=== PATIENT | female | born 1995 | race Caucasian/White ===

== ENCOUNTER 2016-07-29 17:18 | Emergency (ER) | payer MEDICAID ==
[~2016-07-29] VITALS: Ht 162.6 cm; Wt 68.0 kg
[~2016-07-29 17:18] MED LIST: ADDERALL30 MG PO; AMOXIL500 MG PO; BACTRIM DS 8001 TAB; BACTRIM DS 8001 TAB PO; BENADRYL 25MG C25 MG PO; CIPRO 500MG TA500 MG PO; CLARITIN 10MG T10 MG PO; CLARITIN10 MG PO; MEDROL 4MG. DOSE4 MG PO; NOMEDS *; PRILOSEC20 M1 PO; PYRIDIUM100 MG PO; TYLENOL W/CODEI1 TA2 PO
[2016-07-29 18:12] LABS: UTC STREP SCREEN NOT DETECTED (NOTDETECTED); UTC URINE PREGNANCY NEGATIVE (NEG)
[2016-07-29] MEDS ORDERED: FLONASE 50 MCG16 GM (18:20)
[2016-07-29] MEDS ORDERED: BROMFED DM COU118 ML PO (18:20)
--- NOTE | 2016-07-29 18:21 | [facility]gent [facility] Report ---
History of Present Issue Date/Time Seen by Provider 07/29/16 3479 Visit Reason Pt arrived:Walked Presenting Problem:PT C/O COUGH AND SORE THROAT ALONG WITH BILATERAL EAR PAIN SINCE FRIDAY. PT ALSO WORRIES THAT SHE MAY BE Location if Accident: Onset of symptoms date/time:/ or onset unknown for:MEDICAL HX UNKNOWN Have you (or family members/close friends) recently traveled outside the [place]? N If Yes, where/when: Have you had exposure to infectious disease within the past month? TB? Other? Specify: here w/ mother c/o nasal congestion, head pressure, ear pressure, cough since Friday, 3 days ago. Intermittent aches, chills and feeling feverish at night. No known fever. Hasn't taken or tried anything for symptoms "because I never know if I could be ". Sexually active without protection and no periods x years. Denies any symptoms to cause concern for "just never know". Rhinorrhea started today. No known sick contacts. Unsure about flu vaccine. Source patient Exam Limitations no limitations ALLERGIES Coded Allergies: No Known Allergies (07/29/16) Home Medications Active Scripts OMEPRAZOLE MAGNESIUM (Prilosec 20MG) 20 MG PO DAILY 14 Days Prov: 08/03/12 Reported Medications Amphetamine Salt Combination (Adderall) 30 MG PO DAILY History Medical History General CAD? No Angina: No AR: No Hypertension? No Hyperlipidemia? No CHF? No DVT? No PE? No COPD? No Asthma? No Anemia? No GERD? No Gastric ulcers? No GI Bleed? No Hernia? No Thyroid Problems? No Hypothyroidism? No CVA? No Seizures? No Diabetes? No Renal Insuffiency? No UTI? No Stones? No BPH? No GB Disease: No Nephritic Syndrome? No Asplenia? No Hepatitis? No Sickle Cell Disease? No Arthritis? No Migraines? No Cataracts? No Glaucoma? No MRSA? No HIV? No TB? No Anxiety? No Depression? No Cancer? No More? No Immunization HX DT/Tetanus 1-4 YRS Surgical Hx Previous Surgery?Y T&A Social History Smoking Hx Smoker: Never Smoker Tobacco: No Alcohol Alcohol: Yes Review of Systems All Other Systems Reviewed and Negative Constitutional see HPI Eyes denies drainage ENT throat pain (PND, at night, after cough). denies: ear discharge. Respiratory denies shortness of breath, denies wheezing Cardiovascular denies chest pain Gastrointestinal denies abdominal pain, denies nausea, denies vomiting Genitourinary denies: dysuria, frequency. Musculoskeletal see HPI Skin denies rash Psychiatric/Neurological denies no symptoms reported Physical Exam Vital Signs Vital Signs Date Time Temp Pulse Resp B/P Pulse O2 O2 Flow FiO2 Ox Delivery Rate 07/30 1731 98.7 107 16 140/87 99 General Appearance normal appearance, no apparent distress Eye Exam - bilateral eye normal exam Ear, Nose, Throat normal ENT inspection (x/ mild nasal congestion) Neck non-tender, supple Respiratory Status Yes: non productive cough. No: respiratory distress, use of accessory muscles. Lung Sounds anterior: lungs clear. posterior: lungs clear. bilateral: lungs clear. Cardiovascular regular rate/rhythm, no murmur Neurologic alert Skin normal color, warm/dry Lymphatic no adenopathy (cervical) Medical Decision Making LABS/Meds/Orders Pt receiving controlled substance in ED? No Results/Orders Laboratory Tests 07/29/161736: Influenza Type A Ag NOT DETECTED, Influenza Type B Ag NOT DETECTED, Group A Strep Screen NOT DETECTED, Urine Test NEGATIVE Orders Procedure Date/time Status [facility] URINE 07/29 1736 Complete [facility] STREP SCREEN 07/29 1736 Complete [facility] FLU A,B 07/29 1736 Complete Departure Departure Time of Disposition 1817 Disposition DC Home or Self Care(routine) Clinical Impression Primary Impression: Upper respiratory virus Secondary Impressions: Amenorrhea, Cough Condition STABLE Referrals Reggie DURAN,Dyllan Salinas (Family) Follow up immediately for new or worsening symptoms OR no noticeable improvement over the next 48-72 hours. Patient Instructions DI for Cough -- Adult, DI for Viral Upper Respiratory Infection -- Adult Additional Instructions Lots of rest Increase fluids, water, gatorade, powerade Alternate tylenol and/or ibuprofen for fever/aches/pain warm salt water gargles sleep elevated humidifier/vaporizer flonase 2 sprays each nostril daily but may take 2-3 days to notice improvement with it. Bromfed may cause drowsiness. know how it effects you before driving or caring for small children [place] without protection highly discouraged unless you are prepared for and/or STDs Discharge Counseling Counseled pt/family regarding diagnosis, test results, medications/RX, home care, follow up needs Prescriptions Current Visit Scripts D-METHORPHAN HB/P-EPD HCL/BPM (Bromfed Dm Cough Syrup) 10 ML PO QIDP PRN cough #240 ML Fluticasone Propionate (Flonase 50 Mcg Nasal [place]) 2 SPRAY NA DAILY #1 BOT at 1827
[2016-07-29 18:24] VITALS: BP 140/87
== END 2016-07-29 18:24 | disposition home or self-care (01) ==
LOC: UTC 17:18
PROVIDERS: Nurse Practitioner Family
DX: J06.9 Acute upper respiratory infection, unspecified (principal); N91.2 Amenorrhea, unspecified; R05 Cough

== ENCOUNTER → 2017-04-22 | Outpatient (CLI) | payer MEDICAID ==
[~2017-04-22] MED LIST changes: +BROMFED DM COU118 ML PO; +FLONASE 50 MCG16 GM
[2017-04-24 06:42] LABS: FSH 6.2 mIU/mL (.); LH 18.5 mIU/mL (.)
== END ==
LOC: LAB 14:15
PROVIDERS: Nurse Practitioner Obstetrics & Gynecology
DX: N91.2 Amenorrhea, unspecified (principal); N92.6 Irregular menstruation, unspecified